=== PATIENT | female | born 1945 | race Caucasian/White ===

== ENCOUNTER 2018-06-05 08:17 | Inpatient (IN) | payer MEDICARE ==
[~2018-06-05] VITALS: Ht 162.6 cm; Wt 47.9 kg
[2018-06-05] MEDS ORDERED: SODIUM CHLORIDE 0.9% 1,000 ML IV ONE (08:38)
[2018-06-05] MEDS ORDERED: ONDANSETRON HCL 4 MG/2 ML VIAL IV ONE (08:45)
[2018-06-05] MEDS ORDERED: MORPHINE SULFATE 4 MG/ML SYR/VIAL IV ONE (08:45)
[2018-06-05 09:11] LABS: Basophils # (auto) 0 uL; Basophils % (auto) 0.5 % (0.0-2.0); Eosinophils # (auto) 0.1 uL; Eosinophils % (auto) 1.7 % (0.0-7.0); Hemoglobin 11.7 g/dL (12.2-16.2); Lymphocytes # (auto) 0.9 uL; Lymphocytes % (auto) 12.7 % (10.0-50.0); Mean Corpuscular Hemoglobin 27.9 pg (28.0-32.0); Mean Corpuscular Hgb Conc. 32.6 g/dL (32.0-36.0); Mean Corpuscular Volume 85.8 fL (80.0-100.0); Monocytes # (auto) 0.6 uL; Monocytes % (auto) 8.3 % (0.0-12.0); Neutrophils # (auto) 5.2 uL; Neutrophils % (auto) 76.8 % (37.0-80.0); Platelet Count (auto) 132 10^3/uL (140-450); Red Blood Cells 4.19 10^6/uL (4.0-5.20); Red Cell Distribution Width 18.8 % (11.8-14.3); White Blood Cell 6.8 10^3/uL (4.4-10.8)
[2018-06-05 09:26] LABS: INR 1.08 (0.9-1.15); Partial Thromboplastin Time 26.4 sec (23.78-33.04); Prothrombin Time 11.5 sec (9.27-12.13)
[2018-06-05] MEDS ORDERED: HYDROmorphone HCL 2 MG/ML VL IV ONE ×2 (09:30→11:00)
[2018-06-05 09:31] LABS: Albumin 2.6 g/dL (3.4-5.0); Calcium 9.9 mg/dL (8.5-10.1); Potassium 3.6 mmol/L (3.5-5.1)
[2018-06-05 09:37] LABS: BUN/Creatinine Ratio 17.8; Total Protein 7.2 g/dL (6.4-8.2)
[2018-06-05] MEDS ORDERED: MORPHINE SULFATE 4 MG/ML SYR/VIAL IV PRN ×3 (10:30→13:45)
[2018-06-05] MEDS ORDERED: TEMAZEPAM 15 MG CAP PO PRN (10:30)
[2018-06-05] MEDS ORDERED: ACETAMINOPHEN 500 MG TAB PO PRN (10:30)
[2018-06-05] MEDS ORDERED: ONDANSETRON HCL 4 MG/2 ML VIAL IV PRN (10:30)
[2018-06-05] MEDS ORDERED: HYDROcodone-ACET 5/325MG TAB PO PRN (10:30)
[2018-06-05] MEDS ORDERED: FUROSEMIDE 20 MG/2 ML VIAL IV ONE (10:30)
[2018-06-05] MEDS ORDERED: NITROGLYCERIN 0.4 MG SL TAB SL PRN (10:30)
[2018-06-05] MEDS ORDERED: ALBUTEROL SULF 2.5 MG/0.5ML(0.5%) NEB SOLN NEB PRN (10:30)
[2018-06-05] MEDS ORDERED: ENOXAPARIN SOD 60 MG/0.6 ML SYRINGE SC ONE (10:30)
[2018-06-05 10:35] LABS: Urine Bacteria NONE SEEN /hpf (None Seen); Urine Blood Negative /uL (Negative); Urine Mucus FEW (None Seen); Urine Specific Gravity 1.014 (1.001-1.035); Urine WBC 1 /hpf (0 - 5)
[2018-06-05] MEDS: CARVEDILOL 3.125 MG TAB PO SCH ×2 (11:00→21:35)
[2018-06-05] MEDS: cefTRIAXone 1GM/50ML D5W 50 ML IV SCH (11:33)
[2018-06-05] MEDS: AZITHROMYCIN 500MG/ 250ML 250 ML IV SCH (11:33)
[2018-06-05] MEDS: ALBUTEROL SULF 2.5 MG/0.5ML(0.5%) NEB SOLN NEB SCH ×2 (12:15→18:26)
[2018-06-05] MEDS: IPRATROPIUM BROM 0.5 MG/2.5ML INH SOL NEB SCH ×2 (12:15→18:26)
[2018-06-05 13:00] VITALS: BP 118/72
[2018-06-05] MEDS ORDERED: OXY5T PO (13:42)
[2018-06-05] MEDS ORDERED: GABA300C10 PO (13:42)
[2018-06-05] MEDS ORDERED: SENN1TAB14 PO (13:42)
[2018-06-05] MEDS ORDERED: TIM05OS EACHEYE (13:42)
[2018-06-05] MEDS ORDERED: ZEAX5POW XX (13:42)
[2018-06-05] MEDS ORDERED: POTA10TA51 PO (13:42)
[2018-06-05] MEDS ORDERED: CELE100C82 PO (13:42)
[2018-06-05] MEDS ORDERED: CARV3.1240 PO (13:42)
[2018-06-05] MEDS ORDERED: FURO20TA3 PO (13:42)
[2018-06-05] MEDS ORDERED: OXY20CRT PO (13:42)
[2018-06-05] MEDS ORDERED: PANT1INJ3 PO (13:42)
[2018-06-05] MEDS ORDERED: OXYC30TA77 PO (13:42)
[2018-06-05] MEDS ORDERED: DOCU-129 PO (13:42)
[2018-06-05] MEDS ORDERED: DOCU-94 PO (13:42)
[2018-06-05] MEDS: SODIUM CHLOR 0.9% PF (SALINE LOCK) 10ML VIAL/SYR IV SCH ×2 (14:10→21:33)
[2018-06-05] MEDS: oxyCODONE ER 20 MG TAB PO SCH ×2 (14:21→21:34)
[2018-06-05] MEDS: OXYCODONE HCL 5MG TAB PO PRN (16:35)
[2018-06-05 17:00] VITALS: BP 135/86
[2018-06-05] MEDS: HYDROmorphone HCL 2 MG/ML VL IV PRN ×2 (17:10→21:02)
[2018-06-05] MEDS ORDERED: oxyCODONE ER 20 MG TAB PO ONE (18:00)
[2018-06-05 20:00] VITALS: BP 105/54
[2018-06-05 22:00] VITALS: BP 160/62
[2018-06-05] MEDS: LORazepam 0.5 MG TAB PO PRN (22:19)
[2018-06-05 22:30] VITALS: BP 105/54
[2018-06-05 23:11] VITALS: BP 160/62
[2018-06-06] MEDS: IPRATROPIUM BROM 0.5 MG/2.5ML INH SOL NEB SCH ×5 (00:28→23:47)
[2018-06-06] MEDS: ALBUTEROL SULF 2.5 MG/0.5ML(0.5%) NEB SOLN NEB SCH ×5 (00:28→23:46)
[2018-06-06] MEDS: HYDROmorphone HCL 2 MG/ML VL IV PRN ×6 (01:48→21:11)
[2018-06-06 05:00] VITALS: BP 93/52
[2018-06-06] MEDS: oxyCODONE ER 20 MG TAB PO SCH ×3 (05:39→22:48)
[2018-06-06] MEDS: SODIUM CHLOR 0.9% PF (SALINE LOCK) 10ML VIAL/SYR IV SCH ×3 (05:40→22:49)
[2018-06-06 07:11] LABS: Basophils # (auto) 0 uL; Basophils % (auto) 0.2 % (0.0-2.0); Eosinophils # (auto) 0 uL; Eosinophils % (auto) 0.1 % (0.0-7.0); Hematocrit 32.4 % (36.0-46.0); Hemoglobin 10.9 g/dL (12.2-16.2); Lymphocytes % (auto) 16.3 % (10.0-50.0); Mean Corpuscular Hemoglobin 28.5 pg (28.0-32.0); Mean Corpuscular Hgb Conc. 33.6 g/dL (32.0-36.0); Mean Corpuscular Volume 84.9 fL (80.0-100.0); Monocytes # (auto) 0.7 uL; Monocytes % (auto) 10.7 % (0.0-12.0); Neutrophils # (auto) 4.7 uL; Neutrophils % (auto) 72.7 % (37.0-80.0); Nucleated Red Blood Cells % 0.1 %; Platelet Count (auto) 130 10^3/uL (140-450); Red Blood Cells 3.81 10^6/uL (4.0-5.20); Red Cell Distribution Width 18.9 % (11.8-14.3); White Blood Cell 6.4 10^3/uL (4.4-10.8)
[2018-06-06 07:28] LABS: Potassium 3.1 mmol/L (3.5-5.1)
[2018-06-06 07:35] LABS: BUN/Creatinine Ratio 18.5; Calcium 8.9 mg/dL (8.5-10.1)
[2018-06-06 08:16] LABS: Bilirubin, Total 0.7 mg/dL (0.2-1.0)
[2018-06-06 08:50] VITALS: BP 81/41
[2018-06-06] MEDS: cefTRIAXone 1GM/50ML D5W 50 ML IV SCH (09:00)
[2018-06-06] MEDS: OXYCODONE HCL 5MG TAB PO PRN ×2 (09:45→16:35)
[2018-06-06] MEDS: CARVEDILOL 3.125 MG TAB PO SCH ×2 (10:00→22:49)
[2018-06-06] MEDS ORDERED: PANTOPRAZOLE 40 MG TAB PO SCH (10:00)
[2018-06-06] MEDS: POTASSIUM CHL 20 Meq TABLET PO SCH (10:00)
[2018-06-06] MEDS ORDERED: ENOXAPARIN SOD 40 MG/0.4 ML SYRINGE SC SCH (10:00)
[2018-06-06] MEDS: AZITHROMYCIN 500MG/ 250ML 250 ML IV SCH (10:00)
[2018-06-06] MEDS: PANTOPRAZOLE 40 MG TAB PO SCH ×2 (11:00→22:48)
[2018-06-06] MEDS: GABAPENTIN 300 MG CAP PO SCH ×2 (11:18→22:48)
[2018-06-06] MEDS: LORazepam 0.5 MG TAB PO PRN (11:18)
[2018-06-06] MEDS ORDERED: HYDROmorphone HCL 2 MG/ML VL IV ONE (11:30)
[2018-06-06] MEDS: FUROSEMIDE 40 MG/4 ML VIAL IV SCH (11:53)
[2018-06-06 12:17] VITALS: BP 148/82
[2018-06-06 12:48] LABS: Hematocrit 33.5 % (36.0-46.0); Hemoglobin 11.1 g/dL (12.2-16.2)
[2018-06-06 17:30] VITALS: BP 109/58
[2018-06-06] MEDS: Ensure Enlive Strawberry 8oz Bottle PO SCH (18:09)
[2018-06-06] MEDS: Pro-Stat SF 30ml Vanilla PO SCH (18:09)
[2018-06-06 20:00] VITALS: BP 112/64
[2018-06-06 22:00] VITALS: BP 112/64
[2018-06-06] MEDS: ASCORBIC ACID 500 MG TAB PO SCH (22:48)
[2018-06-07 02:04] LABS: Hematocrit 30.7 % (36.0-46.0); Hemoglobin 10.2 g/dL (12.2-16.2)
[2018-06-07 05:00] VITALS: BP 86/51
[2018-06-07] MEDS: ALBUTEROL SULF 2.5 MG/0.5ML(0.5%) NEB SOLN NEB SCH ×3 (05:54→21:07)
[2018-06-07] MEDS: IPRATROPIUM BROM 0.5 MG/2.5ML INH SOL NEB SCH ×3 (05:54→21:07)
[2018-06-07] MEDS: SODIUM CHLOR 0.9% PF (SALINE LOCK) 10ML VIAL/SYR IV SCH ×3 (06:51→21:41)
[2018-06-07] MEDS: oxyCODONE ER 20 MG TAB PO SCH ×3 (06:51→21:42)
[2018-06-07] MEDS: HYDROmorphone HCL 2 MG/ML VL IV PRN ×6 (07:32→21:21)
[2018-06-07] MEDS: Pro-Stat SF 30ml Vanilla PO SCH ×2 (08:00→18:00)
[2018-06-07] MEDS: Ensure Enlive Strawberry 8oz Bottle PO SCH ×3 (08:00→18:00)
[2018-06-07 08:58] VITALS: BP 94/53
[2018-06-07] MEDS: cefTRIAXone 1GM/50ML D5W 50 ML IV SCH (09:06)
[2018-06-07] MEDS: OXYCODONE HCL 5MG TAB PO PRN ×2 (09:07→14:24)
[2018-06-07] MEDS: AZITHROMYCIN 500MG/ 250ML 250 ML IV SCH (09:45)
[2018-06-07] MEDS: FUROSEMIDE 40 MG/4 ML VIAL IV SCH (09:45)
[2018-06-07] MEDS: MULTIPLE VITAMINS W/ MINERALS TAB PO SCH (09:46)
[2018-06-07] MEDS: POTASSIUM CHL 20 Meq TABLET PO SCH (09:46)
[2018-06-07] MEDS: PANTOPRAZOLE 40 MG TAB PO SCH ×2 (09:46→21:42)
[2018-06-07] MEDS: GABAPENTIN 300 MG CAP PO SCH ×2 (09:46→21:42)
[2018-06-07] MEDS: CARVEDILOL 3.125 MG TAB PO SCH ×2 (09:46→21:43)
[2018-06-07] MEDS: ASCORBIC ACID 500 MG TAB PO SCH ×2 (09:47→23:15)
[2018-06-07] MEDS ORDERED: MILK OF MAGNESIA 30ML SUSP PO ONE (11:45)
[2018-06-07 12:25] VITALS: BP 96/62
[2018-06-07] MEDS ORDERED: MEPERIDINE HCL (50 MG/ML) 1 ML VIAL IM ONE ×2 (13:00→15:30)
[2018-06-07 15:11] LABS: Hematocrit 32.4 % (36.0-46.0); Hemoglobin 10.8 g/dL (12.2-16.2)
[2018-06-07 17:09] VITALS: BP 104/55
[2018-06-07 20:00] VITALS: BP 109/62
[2018-06-07 21:15] VITALS: BP 109/62
[2018-06-07] MEDS: LORazepam 0.5 MG TAB PO PRN (23:14)
[2018-06-08] MEDS: ALBUTEROL SULF 2.5 MG/0.5ML(0.5%) NEB SOLN NEB SCH ×4 (01:04→19:41)
[2018-06-08] MEDS: IPRATROPIUM BROM 0.5 MG/2.5ML INH SOL NEB SCH ×4 (01:04→19:41)
[2018-06-08 04:31] VITALS: BP 90/49
[2018-06-08] MEDS: SODIUM CHLOR 0.9% PF (SALINE LOCK) 10ML VIAL/SYR IV SCH ×3 (06:48→22:27)
[2018-06-08] MEDS: oxyCODONE ER 20 MG TAB PO SCH ×3 (06:49→22:25)
[2018-06-08 07:20] VITALS: BP 91/45
[2018-06-08] MEDS: cefTRIAXone 1GM/50ML D5W 50 ML IV SCH (09:00)
[2018-06-08] MEDS: Ensure Enlive Strawberry 8oz Bottle PO SCH ×3 (09:49→18:19)
[2018-06-08] MEDS: Pro-Stat SF 30ml Vanilla PO SCH ×2 (09:49→18:20)
[2018-06-08] MEDS: FUROSEMIDE 40 MG/4 ML VIAL IV SCH (09:49)
[2018-06-08] MEDS: AZITHROMYCIN 500MG/ 250ML 250 ML IV SCH (09:50)
[2018-06-08] MEDS: CARVEDILOL 3.125 MG TAB PO SCH ×2 (09:51→22:00)
[2018-06-08] MEDS: POTASSIUM CHL 20 Meq TABLET PO SCH (09:51)
[2018-06-08] MEDS: MILK OF MAGNESIA 30ML SUSP PO SCH (09:51)
[2018-06-08] MEDS: PANTOPRAZOLE 40 MG TAB PO SCH ×2 (09:52→22:26)
[2018-06-08] MEDS: GABAPENTIN 300 MG CAP PO SCH ×2 (09:52→22:23)
[2018-06-08] MEDS: MULTIPLE VITAMINS W/ MINERALS TAB PO SCH (09:52)
[2018-06-08] MEDS: ASCORBIC ACID 500 MG TAB PO SCH ×2 (10:00→22:23)
[2018-06-08 13:00] VITALS: BP 97/56
[2018-06-08 16:57] VITALS: BP 101/59
[2018-06-08 22:00] VITALS: BP 105/55
[2018-06-08 23:54] VITALS: BP 105/55
[2018-06-09] MEDS: IPRATROPIUM BROM 0.5 MG/2.5ML INH SOL NEB SCH ×3 (00:51→11:01)
[2018-06-09] MEDS: ALBUTEROL SULF 2.5 MG/0.5ML(0.5%) NEB SOLN NEB SCH ×3 (00:51→11:01)
[2018-06-09 05:00] VITALS: BP 93/57
[2018-06-09] MEDS: oxyCODONE ER 20 MG TAB PO SCH ×2 (05:39→16:50)
[2018-06-09] MEDS: SODIUM CHLOR 0.9% PF (SALINE LOCK) 10ML VIAL/SYR IV SCH ×2 (05:39→16:50)
[2018-06-09 09:00] VITALS: BP 101/57
[2018-06-09] MEDS: MILK OF MAGNESIA 30ML SUSP PO SCH (10:00)
[2018-06-09] MEDS: PANTOPRAZOLE 40 MG TAB PO SCH (10:00)
[2018-06-09 10:05] VITALS: BP 143/86
[2018-06-09] MEDS: OXYCODONE HCL 5MG TAB PO PRN (10:08)
[2018-06-09 10:18] VITALS: BP 156/82
[2018-06-09] MEDS: Ensure Enlive Strawberry 8oz Bottle PO SCH ×2 (10:20→16:50)
[2018-06-09] MEDS: Pro-Stat SF 30ml Vanilla PO SCH (10:20)
[2018-06-09] MEDS: cefTRIAXone 1GM/50ML D5W 50 ML IV SCH (10:21)
[2018-06-09] MEDS: AZITHROMYCIN 500MG/ 250ML 250 ML IV SCH (10:21)
[2018-06-09] MEDS: FUROSEMIDE 40 MG/4 ML VIAL IV SCH (10:21)
[2018-06-09] MEDS: GABAPENTIN 300 MG CAP PO SCH (10:22)
[2018-06-09] MEDS: CARVEDILOL 3.125 MG TAB PO SCH (10:22)
[2018-06-09] MEDS: POTASSIUM CHL 20 Meq TABLET PO SCH (10:22)
[2018-06-09] MEDS: MULTIPLE VITAMINS W/ MINERALS TAB PO SCH (10:22)
[2018-06-09] MEDS: ASCORBIC ACID 500 MG TAB PO SCH (10:23)
== END 2018-06-09 18:15 | disposition home or self-care (01) | DRG 193 ==
LOC: ER 08:17 → EDBD 08:17 → TELE 08:18 → TELE-EAST 12:25
PROVIDERS: ADMIT Internal Medicine; ATTEND Family Medicine
DX: J18.9 Pneumonia, unspecified organism (principal); E43 Unspecified severe protein-calorie malnutrition; C78.00 Secondary malignant neoplasm of unspecified lung; C79.51 Secondary malignant neoplasm of bone; J90 Pleural effusion, not elsewhere classified; Z68.1 Body mass index [BMI] 19.9 or less, adult; C50.919 Malignant neoplasm of unspecified site of unspecified female breast; I50.9 Heart failure, unspecified; Z51.5 Encounter for palliative care; R06.03 Acute respiratory distress; G89.4 Chronic pain syndrome; K59.00 Constipation, unspecified; Z66 Do not resuscitate; Z90.12 Acquired absence of left breast and nipple; Z90.710 Acquired absence of both cervix and uterus; Z99.81 Dependence on supplemental oxygen; M54.9 Dorsalgia, unspecified; Z90.49 Acquired absence of other specified parts of digestive tract
CPT/HCPCS: 36415; 36600; 51702; 71045; 80053; 81001; 82550; 82805; 83880; 84443; 84484; 85014; 85018; 85025; 85610; 85730; 87040; 93005; 93306; 94640; 96365; 96368; 96372; 96375; 96376; 97163; A6257; G0378; J0696; J1642; J2405

== ENCOUNTER 2018-09-23 10:17 | Inpatient (IN) | payer MEDICARE | END 2018-09-26 14:28 | disposition home or self-care (01) | LOC: TELE-WESTW 09-25 08:55 → ER 10:17 → TELE 14:33 | DX: A41.9 Sepsis, unspecified organism (principal); G93.41 Metabolic encephalopathy; E43 Unspecified severe protein-calorie malnutrition; E87.6 Hypokalemia; E83.42 Hypomagnesemia; I50.9 Heart failure, unspecified; D64.9 Anemia, unspecified; I67.2 Cerebral atherosclerosis; C50.919 Malignant neoplasm of unspecified site of unspecified female breast; I95.9 Hypotension, unspecified; E87.8 Other disorders of electrolyte and fluid balance, not elsewhere classified ==